=== PATIENT | female | born 1985 | race American Indian/Alaskan Native ===

== ENCOUNTER 2018-07-30 13:12 | Emergency (ER) | payer OTHER ==
[2018-07-30 13:22] VITALS: BP 143/97
--- NOTE | 2018-07-30 13:25 | Emergency Department Report ---
Blank Doc - Documentation Documentation: This is a 33-year-old female that presents with URI symptoms. This initial assessment/diagnostic orders/clinical plan/treatment(s) is/are subject to change based on patient's health status, clinical progression and re- assessment by fellow clinical providers in the ED. Further treatment and workup at subsequent clinical providers discretion. Patient/guardians urged not to elope from the ED as their condition may be serious if not clinically assessed and managed. Initial orders include: 1- Patient sent to [facility] for further evaluation and treatment 2- CXR
--- NOTE | 2018-07-30 13:41 | XRay Report ---
XRAY CHEST TWO VIEWS: 07/30/18 13:12:00 CLINICAL: Cough. COMPARISON: None FINDINGS: Normal heart and pulmonary vasculature. The lungs are normally expanded and clear.Mild degenerative changes in the spine. IMPRESSION: No acute cardiopulmonary process.
--- NOTE | 2018-07-30 15:11 | Emergency Department Report ---
Minor Respiratory - HPI Chief Complaint: Upper Respiratory Infection Stated Complaint: COUGHING/BP PROBLEMS Time Seen by Provider: 07/30/18 13:24 Duration: 5 Days Severity: mild Minor Respiratory: Yes Able to Tolerate Fluids, Yes Cough, No Rhinorrhea, No Sore Throat, No Ear Pain, No Sick Contacts, No Hemoptysis, No Chest Pain, No Shortness of Breath, No Fever Other History: This is a 33-year-old female who presents to the emergency room with a cough and elevated blood pressure for several days. No past medical history. Patient states she attempted to donate plasma and was told her blood pressure was elevated and to follow-up in the emergency room. Patient states cough intermittently for several weeks. Patient states every now and again she feel reflux after eating or laying down. She denies chest pain, shortness of breath, metallic taste, nausea or vomiting, abdominal pain, or coryza. ED Review of Systems ROS: Stated complaint: COUGHING/BP PROBLEMS Other details as noted in HPI Constitutional: denies: chills, fever ENT: denies: ear pain, throat pain Respiratory: cough. denies: shortness of breath, wheezing Cardiovascular: denies: chest pain, palpitations Gastrointestinal: denies: abdominal pain, nausea, diarrhea Skin: denies: rash, lesions Neurological: denies: headache, weakness, paresthesias Psychiatric: denies: anxiety, depression ED Past Medical Hx - Past Medical History Previous Medical History?: Yes Hx Hypertension: Yes - Surgical History Past Surgical History?: No - Social History Smoking Status: Former Smoker Substance Use Type: Alcohol - Medications Home Medications: Home Medications Medication Instructions Recorded Confirmed Last Taken Type diazePAM TAB [Valium] 5 mg PO TID PRN #15 tablet 04/19/13 Unknown Rx traMADol [Ultram] 50 mg PO Q6HR PRN #20 tablet 04/19/13 Unknown Rx Permethrin 5% [Acticin 5% CREAM] 1 applicatio TP ONCE #1 tube 08/23/14 Unknown Rx hydrOXYzine HCL [Atarax] 25 mg PO Q6HR PRN #25 tablet 08/23/14 Unknown Rx predniSONE [Deltasone] 40 mg PO QDAY #10 tab 08/23/14 Unknown Rx Cyclobenzaprine [Flexeril] 10 mg PO QHS #15 tablet 02/07/18 Unknown Rx Ibuprofen [Motrin 600 MG tab] 600 mg PO Q6H PRN #30 tablet 02/07/18 Unknown Rx Omeprazole 40 mg PO DAILY #30 capsule. 07/30/18 Unknown Rx hydroCHLOROthiazide [HCTZ] 12.5 mg PO QDAY #30 capsule 07/30/18 Unknown Rx Minor Respiratory Exam - Exam General: Vital signs noted. No distress. Alert and acting appropriately. HEENT: Yes Moist Mucous Membranes, No Pharyngeal Erythema, No Pharyngeal Exudates, No Rhinorrhea, No Conjuctival Injection, No Frontal Tenderness, No Maxillary Tenderness Ear: Neither TM Bulge, Neither TM Erythema, Neither EAC Pain, Neither EAC Discharge Neck: Yes Supple, No Adenopathy Lungs: Yes Good Air Exchange, No Wheezes, No Ronchi, No Stridor, No Cough, No Labored Respirations, No Retractions, No Use of Accessory Muscles, No Other Abnormal Lung Sounds Heart: Yes Regular, No Murmur Abdomen: Yes Normal Bowel Sounds, No Tenderness, No Peritoneal Signs Skin: No Rash, No Edema Neurologic: Alert and oriented, no deficits. Musculoskeletal: Unremarkable. ED Course Vital Signs 07/30/18 13:21 Temperature 98.4 F Pulse Rate 94 H Respiratory 20 Rate Blood Pressure 143/97 ED Medical Decision Making - Radiology Data Radiology results: report reviewed XRAY CHEST TWO VIEWS: 07/30/18 13:12:00 CLINICAL: Cough. COMPARISON: None FINDINGS: Normal heart and pulmonary vasculature. The lungs are normally expanded and clear.Mild degenerative changes in the spine. IMPRESSION: No acute cardiopulmonary process. - Medical Decision Making Patient examined by me and stable. No distress noted. Vitals normal. And chest x-ray was obtained and dictated by radiologist with no acute cardiopulmonary findings. Blood pressure is elevated and patient is asymptomatic. Patient also reports a history of acid reflux without diagnosis. Will start hydrochlorothiazide 12.5 mg by mouth daily for hypertension and omeprazole trial for GERD. Referral to primary care physician for follow-up within the next 1-2 weeks. Discharged home stable. She will return to the emergency room if he does not get better as discussed. Critical care attestation.: If time is entered above; I have spent that time in minutes in the direct care of this critically ill patient, excluding procedure time. ED Disposition Clinical Impression: Cough in adult, Asymptomatic hypertension Disposition: - TO HOME OR SELFCARE Is pt being admited?: No Does the pt Need Aspirin: No Condition: Stable Instructions: Hypertension (ED), Gastroesophageal Reflux Disease (ED) Additional Instructions: Encourage stop smoking to reduce cardiovascular risk. Moderate caffeine consumption is acceptable. Begin and maintain aerobic exercise, with a goal of at least 30 minutes of moderate intensity, dynamic aerobic exercise (walking, jogging, cycling, or swimming) 5 days per week to total 150 minutes as tolerated or recommended by a physician. Take medication daily as prescribed. Follow up with Primary Care Provider in 1 week. Prescriptions: hydroCHLOROthiazide [HCTZ] 12.5 mg PO QDAY #30 capsule Omeprazole 40 mg PO DAILY #30 capsule.dr [facility] [place] [Primary Care Provider] - 3-5 Days [facility] [Outside] - 3-5 Days [facility] [Outside] - 3-5 Days Forms: Work/School Release Form(ED) Time of Disposition: 15:37
== END 2018-07-30 15:49 | disposition home or self-care (01) ==
LOC: ED 13:12
DX: R05 Cough (principal); I10 Essential (primary) hypertension; Z87.891 Personal history of nicotine dependence
CPT/HCPCS: 71046

== ENCOUNTER 2019-03-04 11:50 | Emergency (ER) | payer SELFPAY ==
[2019-03-04 13:36] VITALS: BP 149/95
--- NOTE | 2019-03-04 13:46 | Emergency Department Report ---
Chief Complaint: Nausea/Vomiting/Diarrhea Stated Complaint: POOPING/VOMITING Time Seen by Provider: 03/04/19 13:40 - HPI History of Present Illness: This is a 34-year-old female nontoxic, well in appearance with no signs of distress presents to the ED for nausea and vomiting that happened this morning and is in need of a work excuse. Patient stated that this only happened once. Stated symptoms has resolved since then. Curretnly denies any pain or n/v. Deneis any abdominal or pelvic pain. Denies any vaginal discharge, vaginal pain, or swelling. Patient denies any urinary symptoms. Patient denies any fever, chills, headache, nausea, vomiting, chest pain or shortness of breathe. denies any other symptoms or complaints. Denies any allergies or PMH. Deneis any . - Exam Vital Signs: Vital Signs 03/04/19 12:27 Temperature 98.4 F Pulse Rate 95 H Respiratory 16 Rate Blood Pressure 149/95 O2 Sat by Pulse 97 Oximetry Physical Exam: no abdominal tenderness. no n/v. no flank pain. no urianry symptoms. no symptoms now. MSE screening note: Focused history and physical exam performed. Due to findings the following was ordered: ED Medical Decision Making - Medical Decision Making Patient is eating and drinking in the ED triage right now with no n/v. Normal exam. Patient was instructed to Follow-up with a primary care doctor in 3-5 days or if symptoms worsen and continue return to emergency room as soon as possible. At time of discharge, the patient does not seem toxic or ill in appearance. No acute signs of distress noted. Patient agrees to discharge treatment plan of care. No further questions noted by the patient. ED Disposition for MSE Clinical Impression: Nausea & vomiting Qualifiers: Vomiting type: unspecified Vomiting Intractability: non-intractable Qualified Code(s): R11.2 - Nausea with vomiting, unspecified Disposition: MED SCREENING EXAM-LEFT Is pt being admited?: No Does the pt Need Aspirin: No Condition: Stable Instructions: Acute Nausea and Vomiting (ED) Additional Instructions: Follow-up with a primary care doctor in 3-5 days or if symptoms worsen and continue return to emergency room as soon as possible. Referrals: PRIMARY MD NICOL [Referring] - 3-5 Days NICOLETTE TAYLOR MD [Staff Physician] - 3-5 Days [facility] [Outside] - 3-5 Days
== END 2019-03-04 14:57 | disposition left against medical advice (07) ==
LOC: ED 11:50
DX: R11.2 Nausea with vomiting, unspecified (principal)
CPT/HCPCS: 99281